=== PATIENT | male | born 2000 | race Caucasian/White ===

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

== ENCOUNTER 2022-12-22 15:47 | Emergency (ER) | payer SELFPAY ==
[2022-12-22 15:59] VITALS: BP 139/87; PULSE 100
[2022-12-22 17:13] LABS: CORONAVIRUS COVID-19 NAA NEGATIVE (NEGATIVE)
== END 2022-12-22 17:32 | disposition home or self-care (01) ==
LOC: JP.ED 15:47
DX: J06.9 Acute upper respiratory infection, unspecified (principal); Z20.822 Contact with and (suspected) exposure to COVID-19; Z72.0 Tobacco use; Z88.2 Allergy status to sulfonamides; Z88.8 Allergy status to other drugs, medicaments and biological substances
CPT/HCPCS: 0241U; 36415; 71046; 80048; 85025; 87081; 87880; 99283

== ENCOUNTER 2023-01-18 20:57 | Emergency (ER) | payer SELFPAY ==
[2023-01-18 21:12] VITALS: BP 138/89; PULSE 47
== END 2023-01-18 21:43 | disposition home or self-care (01) ==
LOC: JP.ED 20:57
DX: J02.9 Acute pharyngitis, unspecified (principal); F17.210 Nicotine dependence, cigarettes, uncomplicated; Z88.2 Allergy status to sulfonamides; Z88.8 Allergy status to other drugs, medicaments and biological substances
CPT/HCPCS: 87081; 87880-QW; 99282; 99283